=== PATIENT | male | born 1995 | race African-American/Black ===

== ENCOUNTER 2020-01-18 15:58 | Inpatient (IN) ==
--- NOTE | 2020-01-18 19:27 | Diag Imaging Result Doc PS360 ---
EXAM: ABDOMEN FLAT/UPRIGHT - 01/18/2020 HISTORY: n/v abd pain TECHNIQUE: Supine and upright abdomen COMPARISON: 06/10/2011 FINDINGS: There is gas visible in mostly nondistended small bowel and colon. There are multiple air-fluid levels on the upright view. There is possibly some small bowel and colonic wall thickening. There is no free air identified. IMPRESSION: Bowel gas pattern which may relate to enterocolitis. Electronically signed by [employer] 01/18/2020 7:25 PM
[2020-01-18 19:39] LABS: BASO# 0.04 X1000 (0.0-0.2); BASO% 0.6 % (0.0-0.8); EOS# 0.06 X1000 (0.0-0.7); EOS% 0.8 % (0.0-10.0); HEMATOCRIT 47.5 % (42.0-52.0); HEMOGLOBIN 16.9 g/dL (14.0-18.0); IMM GRAN# 0.02 X1000 (0.0-0.04); IMM GRAN% 0.3 % (0.0-0.5); LYMPH# 1.35 X1000 (1.2-3.4); MCH 32.4 PG (27-31); MCHC 35.6 g/dL (33-37); MONO# 0.47 X1000 (0.11-0.59); MONO% 6.6 % (1.7-9.3); MPV 10.8 FL (7.4-10.4); NEUT# 5.15 X1000 (1.4-6.5); NEUT% 72.7 % (42.2-75.2); PLT 226 X1000 (130-400); RBC 5.22 XMIL (4.7-6.1); RDW 11.9 % (11.5-14.5); WBC 7.09 X1000 (4.8-10.8)
[2020-01-18 20:05] LABS: AGAP 13; ALB/GLOB RATIO 1.8; ALKALINE PHOSPHATASE 57 U/L (32-122); AMYLASE 72 U/L (20-200); BUN 6 mg/dL (8-22); CALCIUM 9.7 mg/dL (8.8-10.2); CHLORIDE 94 mmol/L (98-107); COSMO 275; ESTIMATED GFR > 60; GLUCOSE 154 mg/dL (70-104); GOT 73 U/L (10-34); GPT 61 U/L (10-44); LIPASE 19 U/L (13-60); MAGNESIUM 1.7 mg/dL (1.5-2.7); POTASSIUM 4.7 mmol/L (3.5-5.1); SODIUM 137 mmol/L (136-145); TCO2 30 mmol/L (25-35); TOTAL BILIRUBIN 0.96 mg/dL (0.20-1.00); TOTAL PROTEIN 7.8 g/dL (6.3-8.3)
--- NOTE | 2020-01-18 21:00 | PROVIDER DOCUMENTATION ---
This chart was entered by Alexandra Quach Scribe, acting as scribe for Kalani Cabrales CRNP. HPI-Abdominal Pain/GI Problem - General Chief Complaint: Nausea/Vomiting Stated Complaint: CANT EAT,VOMITING Time Seen by Provider: 01/18/20 18:21 Source: patient Allergies/Adverse Reactions: Patient Allergies Allergy/AdvReac Type Severity Reaction Status Date / Time codeine Allergy Unknown Verified 01/10/20 16:14 Penicillins Allergy Unknown Verified 01/10/20 16:14 Home Medications: Home Medication List Medication Instructions Recorded Confirmed Last Taken Type Ondansetron Odt [Zofran 4 mg Odt] 4 mg PO Q6H PRN PRN #20 tab 01/18/20 Unknown Rx - History of Present Illness-ABD Nature of Presenting Problems: Pt is a 24 yobm presenting in the ED with c/o nausea/ vomiting, dizziness, and weakness that started 2 weeks ago. Pt states that he has not been able to keep anything but liquids down for 4 days and the smell of food makes him nauseous. Pt says that his last bowel movement was 2 days ago and was dark diarrhea. Pt reports that he had his appendix out as a teenager and has had no other health issues since. Pt states he smokes 1/2 a pack of cigarettes daily and occasionally will have a beer. Pt is alert and nontoxic in appearance. Quality of Pain: reports: cramping (slight) Severity in ED: reports: mild Onset/Duration: reports: abrupt, other (2 weeks ago) Timing: reports: still present, changing over time, getting worse (Pt reports that the nausea has gotten worse and he cannot keep anything but liquids down for the last 4 days.) Activities at Onset: reports: light activity Modifying Factors: improves with: nothing Associated Symptoms: reports: diarrhea, dizziness, loss of appetite, nausea, weakness. denies: constipation, cough, shortness of breath Last BM: 2 days ago Dark Stools Present?: reports: black (diarrhea) # of Diarrhea Episodes: 1 # of Vomiting Episodes: 2 (daily) Emesis Description: reports: clear Bruising or Bleeding Gums?: No Similar Symptoms Previously?: Yes (pt states that symptoms have been going on for 2 weeks) Recently seen or treated by another doctor?: Yes (01/10/2020 in ED) Review of Systems - Adult - REVIEW OF SYSTEMS - ADULT Constitutional: reports: see HPI, fatique. denies: chills, fever Eyes: reports: no symptoms reported Ears, Nose, Mouth & Throat: reports: no symptoms reported Cardiovascular: denies: chest pain, syncope Respiratory: denies: cough, shortness of breath Gastrointestinal: reports: abdominal pain (cramping), diarrhea, nausea, vomiting Genitourinary: reports: no symptoms reported Musculoskeletal: reports: see HPI, muscle weakness Integumentary: reports: no symptoms reported Neurological: reports: no symptoms reported Psychiatric: reports: no symptoms reported Endocrine: reports: no symptoms reported Hematologic/Lymphatic: reports: no symptoms reported Allergic/Immunologic: reports: no symptoms reported All Other Systems: Reviewed and Negative Past History - Adult - PAST MEDICAL HISTORY-ADULT Review of Records: reports: Old Records Reviewed, Nursing Assessment Review, Medications Reviewed, Social history reviewed & non-contributory. Major Childhood Illnesses: reports: denies history Cardiovascular: reports: denies history Respiratory: reports: bronchitis Gastrointestinal: reports: denies history Genitourinary: reports: denies history Musculoskeletal: reports: denies history Neurological: reports: denies history Endocrine/Immune: reports: denies history Other Conditions: reports: denies history - PRIOR SURGERIES/PROCEDURES Surgical/Procedure History: reports: appendectomy - IMMUNIZATION STATUS Childhood Immunizations: See Nurse Assessment Flu Vaccine: See Nurse Assessment - FAMILY HISTORY Family History: reviewed, not pertinent - SOCIAL HISTORY Smoking: cigarettes, less than 1 pack/day Provider spent 3-5 mins advising pt. on dangers of tobacco.: Discussed manners to quit use, and f/u contacts for add'l counseling. Substance Use: alcohol Alcohol Use Frequency: occasionally Number of drinks per typical drinking period:: 2 drinks Living Situation: family Physical Exam-General - PHYSICAL EXAM-ADULT Initial Vital Signs Reviewed: Yes - CONSTITUTIONAL General Appearance: appears well, alert, no apparent distress, thin - EYES Eyes: PERRL/EOMI, pink conjunctivae - HEAD, EARS, NOSE, MOUTH & THROAT HENMT: normocephalic/atraumatic, moist mucous membranes - NECK Neck: non-tender, full range of motion, supple, normal inspection - RESPIRATORY Respiratory: chest non-tender, lungs clear, normal breath sounds, no respiratory distress - CARDIOVASCULAR Cardiovascular: normal peripheral pulses, regular rate, rhythm - GASTROINTESTINAL (ABDOMEN) Abdominal Exam: normal bowel sounds, non tender, soft - LYMPHATIC Lymphatic: no adenopathy - MUSCULOSKELETAL Back Exam: normal inspection, no CVA tenderness, no vertebral tenderness Extremity: normal range of motion, non-tender, normal gait, normal inspection, no pedal edema, no calf tenderness, normal capillary refill - SKIN Integumentary: normal color, normal turgor, warm/dry - NEUROLOGIC Neurologic: grossly normal - PSYCHIATRIC Psych/Mental Status: normal mood/affect, normal thought content, normal thought process, oriented x 3 Progress - PLAN OF CARE/RESULTS Progress/Plan/Lab Results: Vital Signs - 8 hr 01/18/20 16:30 Temperature 99.3 F Pulse Rate 84 Respiratory Rate 20 Blood Pressure 139/84 O2 Sat by Pulse Oximetry 98 Patient agrees with POC rendered today. Consulted with Dr. Ramirez, will admit the patient and start on IV antibiotics for enterocolitis. Result Diagrams: 01/18/20 19:25 01/18/20 19:25 - XRAY 1 XRAY Study: Abdomen Impression: See EMR Report ([facility] - [address] [facility], [address], [place] [address] [facility] - [address] [place] [address] Department of Imaging Patient: JAYCOB IBARRA OADM Date: 01/18/20MR#: [id number] : 1995ADM Status: REG ERAcct#: [id number] Age/Sex: 24/MRoom/Bed: Loc: ED Ordering Physician: Kalani Cabrales Family Physician: None,PCP Reason for Procedure: n/v abd pain ___ Signed EXAM: ABDOMEN FLAT/UPRIGHT - 01/18/2020 HISTORY: n/v abd pain TECHNIQUE: Supine and upright abdomen COMPARISON: 06/10/2011 FINDINGS: There is gas visible in mostly nondistended small bowel and colon. There are multiple air-fluid levels on the upright view. There is possibly some small bowel and colonic wall thickening. There is no free air identified. IMPRESSION: Bowel gas pattern which may relate to enterocolitis. Electronically signed by [employer] 01/18/2020 7:25 PM 01/18/201924 Interpreting Physician: Gasper Smith MD Dictated Date/Time: 01/18/201922 cc: Kalani Cabrales; None,PCP) - CT/MRI 1 CT Study: Abdomen, Pelvis Impression: See EMR Report (FINDINGS: The visualized lung bases are clear. There are no substantial abnormalities of the liver, spleen, or adrenal glands identified. There are no calcified gallstones or pericholecystic inflammation identified. The common bile duct is noted to be upper normal in caliber at 7 mm. There is no calcified common duct stone identified. There is no pancreatic mass or inflammation identified. The bilateral kidneys enhance homogeneously except for a 0.8 cm left renal cyst. There is no hydronephrosis. There are no substantially enlarged lymph nodes identified. There are no substantially enlarged lymph nodes identified. There is no evidence of bowel obstruction. The appendix is surgically absent. There is a suggestion of pneumatosis at multiple small bowel loops. However, there is no substantial small bowel wall thickening or mesenteric edema identified to suggest substantial enteritis or ischemia. The pneumatosis may therefore be idiopathic/benign. There is no free air, free fluid, or abscess identified. IMPRESSION: Apparent small bowel pneumatosis. No associated small bowel wall thickening or mesenteric edema, which suggests that the pneumatosis may be idiopathic/benign. No bowel obstr uction. No abscess. No free air. Upper normal caliber common bile duct. No calcified gallstones. Unremarkable pancreas. This exam was performed using automated exposure control, adjustment of mA or kV according to patient size, and/or use of iterative reconstruction technique. Electronically signed by [employer] 01/18/2020 9:07 PM) - CONSULTS/PCP/HOSPITALIST Notification #1 *Consult/PCP/Hospitalist*: Dr. Ramirez Time Discussed: 21:32 Consult Disposition: Will see in ED (Reviewed over CT results and MD will see in ED) #2 Consult: Jaya Hart Time Discussed: 21:53 Consult Disposition: Admit Departure - Departure Date of Disposition Decision: 01/18/20 Time of Disposition Decision: 21:54 DIAGNOSIS: Tobacco use disorder, Anorexia, Enterocolitis, Pneumatosis intestinalis of small intestine Disposition: ADMITTED INPATIENT 09 Certified Medical Emergency: Emergent Condition: Fair Prescriptions: Ondansetron Odt [Zofran 4 mg Odt] 4 mg PO Q6H PRN PRN #20 tab PRN Reason: Nausea Prescription Printed Work Excuses: Return to School/Parent Work - Critical Care Note This patient required my direct & personal management of CC.: No Attestation - Physician/ NETTIE Attestation Patient care was provided by Advanced Practice Provider:: Yes Advanced Practice Provider:: Kalani Cabrales Advanced Practice Provider documentation review:: The Mid-level provider documentation, treatment plan and medical decision making was reviewed by the physician who agrees with all treatment and medical decision making by the MLP. The physician spent face to face time with patient:: Yes Advanced Practice Provider documentation review:: Supervising physician onsite and consulted in the evaluation and care of this patient. The physician did have a face to face encounter with the patient. This chart was documented by the indicated scribe, (Alexandra Quach, Lana) and accurately reflects the services I performed and decisions made by me, Kalani Cabrales CRNP, as attested by the provider's signature.
--- NOTE | 2020-01-18 21:09 | Diag Imaging Result Doc PS360 ---
EXAM: CT ABD/PELVIS W/IV CONT ONLY - 01/18/2020 HISTORY: abdominal pain TECHNIQUE: CT abdomen/pelvis with intravenous contrast COMPARISON: 01/18/2020 abdomen radiograph FINDINGS: The visualized lung bases are clear. There are no substantial abnormalities of the liver, spleen, or adrenal glands identified. There are no calcified gallstones or pericholecystic inflammation identified. The common bile duct is noted to be upper normal in caliber at 7 mm. There is no calcified common duct stone identified. There is no pancreatic mass or inflammation identified. The bilateral kidneys enhance homogeneously except for a 0.8 cm left renal cyst. There is no hydronephrosis. There are no substantially enlarged lymph nodes identified. There are no substantially enlarged lymph nodes identified. There is no evidence of bowel obstruction. The appendix is surgically absent. There is a suggestion of pneumatosis at multiple small bowel loops. However, there is no substantial small bowel wall thickening or mesenteric edema identified to suggest substantial enteritis or ischemia. The pneumatosis may therefore be idiopathic/benign. There is no free air, free fluid, or abscess identified. IMPRESSION: Apparent small bowel pneumatosis. No associated small bowel wall thickening or mesenteric edema, which suggests that the pneumatosis may be idiopathic/benign. No bowel obstruction. No abscess. No free air. Upper normal caliber common bile duct. No calcified gallstones. Unremarkable pancreas. This exam was performed using automated exposure control, adjustment of mA or kV according to patient size, and/or use of iterative reconstruction technique. Electronically signed by Gasper Smith 01/18/2020 9:07 PM
[2020-01-18 21:41] LABS: URINE SOURCE CLEAN CATCH
[2020-01-18 21:44] LABS: BILIRUBIN URINE NEGATIVE (NEGATIVE); BLOOD URINE NEGATIVE (NEGATIVE); COLOR YELLOW; GLUCOSE URINE NEGATIVE (NEGATIVE); KETONE URINE NEGATIVE (NEGATIVE); LEUKOCYTES URINE NEGATIVE (NEGATIVE); NITRITE URINE NEGATIVE (NEGATIVE); PROTEIN URINE NEGATIVE (NEGATIVE); SP GRAVITY URINE 1.031; TURBIDITY URINE CLEAR (CLEAR); UROBILINOGEN URINE NORMAL (NORMAL)
[2020-01-18 21:46] LABS: UR EPITHELIAL CELLS <10 /HPF (<10); URINE BACTERIA NEGATIVE /HPF; URINE RBC <10 /HPF (<10); URINE WBC <10 /HPF (<10)
[2020-01-18] MEDS ORDERED: FLAGYL 500 MG/NS 500 MG/100 ML IVPB IV ONE (21:48)
[2020-01-18] MEDS ORDERED: CIPRO 400 MG/D5W 400 MG/200 ML IVPB IV ONE (21:48)
--- NOTE | 2020-01-18 22:51 | GENERAL SURGERY CONSULTATION ---
DATE: 01/18/2020 REASON FOR CONSULTATION: Possible pneumatosis, nausea. CHIEF COMPLAINT: Nausea and vomiting for several weeks. HISTORY OF PRESENT ILLNESS: This is a 24-year-old gentleman, no real significant medical history other than daily smoking up to a pack a day. He has a history of perforated appendicitis, and underwent appendectomy for that several years ago. He says over the last 2-3 weeks he has not really had much of an appetite. He is able to tolerate some solid food, some food he says he gets nauseated just with the smell. He is able tolerate liquids. His bowel movement has been normal for him. He does not go every day. He does tend to go every other day, and that has been unchanged. No blood. His weight has been stable. No fevers. Denies any real sick exposures. He has been in the ER a couple of times for this. He came today. He had a nonspecific abdominal x-ray which prompted CT scan, that showed findings of possible pneumatosis. PAST MEDICAL HISTORY: Negative other than what is mentioned in the HPI. PAST SURGICAL HISTORY: He has had a laparoscopic appendectomy. SOCIAL HISTORY: He smokes up to a pack a day. Occasional alcohol. FAMILY HISTORY: Reviewed. Negative for cancer. REVIEW OF SYSTEMS: Ten-point review of systems was performed and negative other than what is mentioned in HPI. PHYSICAL EXAMINATION: On exam he is afebrile. Pulse is in the 80s, blood pressure 139/84, oxygen saturation 98%. He is 160 pounds, 6 feet 5 inches. Generally he is alert, in no acute distress.HEENT: There is no scleral icterus. No cervical mass. Cardiovascular: Normal rate. Pulmonary: No increased work of breathing. His abdomen is soft, nontender, nondistended. Integument: Warm and dry. Psychiatric: Appropriate affect. Neurologic: No gross deficits. Lymphatic: No cervical, axillary or inguinal adenopathy. LABORATORY DATA: White count 7, hematocrit 47, creatinine 1.0. Mild elevation in his AST and ALT. Bilirubin is normal. Lipase is normal. Urinalysis is clear. DIAGNOSTIC DATA: I reviewed his CT scan. I do not see any free air. I do not see any free fluid. I do not see any evidence of bowel obstruction. I struggle to see areas that are definitive pneumatosis, although I do see some bowel gas pattern that is most likely intraluminal, not intramural. RECOMMENDATIONS: Given his benign abdominal exam, his hemodynamic stability and his normal labs, I have recommended observation and treatment with IV antibiotics for possible infectious-type enteritis symptoms. He ultimately would benefit from EGD and colonoscopy, although I do not see any inflammatory changes on the scan. I talked to the ER about this. We are going to admit him to the hospitalist. We will follow along, but doubtful he will progress to any more emergent intervention. I would keep him on strict bowel rest for the next 24-48 hours, pending resolution of this. I discussed the plan with the patient. He seems to be in no acute distress whatsoever, and is agreeable to the plan. cc: Prem Ramirez MD
--- NOTE | 2020-01-18 23:07 | HISTORY AND PHYSICAL ---
PRIMARY CARE PHYSICIAN: none. CHIEF COMPLAINT: Abdominal pain, nausea, vomiting, diarrhea x4 days. HISTORY OF PRESENTING ILLNESS: A 24-year-old male without any significant past medical history presented to emergency department with 4 days history of having abdominal pain associated with nausea, vomiting and diarrhea. The patient states that he could not keep anything down. He was having difficulty eating and did not feel well. He was evaluated in the emergency department. He had imaging done which did show possible small-bowel pneumatosis. His case was discussed with General surgery, who thought this was more enterocolitis; however, recommended the patient be admitted for observation for further evaluation management. At the time of my examination, patient denied any headache, fever, chills, chest pain, shortness of breath, hemoptysis or any weight changes, but complained of abdominal pain. PAST MEDICAL HISTORY: None. PAST SURGICAL HISTORY: Appendectomy. ALLERGIES: Codeine and penicillin. CURRENT MEDICATIONS: None. SOCIAL HISTORY: Smoking for the past 5 years. Admits to social alcohol use. Denies any history of illicit drug use. FAMILY HISTORY: No history of coronary disease. REVIEW OF SYSTEMS: Fourteen point review of systems listed as in HPI. Other systems negative. PHYSICAL EXAMINATION: GENERAL: Cooperative, friendly male he is resting comfortably now. VITAL SIGNS: Temperature 99.3 degrees, pulse 84, respirations 20, blood pressure 139/84. HEENT: Atraumatic, normocephalic. Extraocular movements intact. PERRLA. NECK: Supple. CHEST: Clear to auscultation. CARDIOVASCULAR: Regular rate and rhythm. ABDOMEN: Soft, diffuse tenderness. EXTREMITIES: No edema. NEUROLOGIC: He is awake, alert, oriented x3. GENITOURINARY: No bladder distention. SKIN: Warm. LABORATORIES AND STUDIES: WBC 7.09, hemoglobin 16.9, hematocrit 45.5, platelets 226,000. Sodium 137, potassium 4.7, chloride 94, CO2 is 30, BUN is 6, creatinine is 1.0. Glucose is 154. CT of the abdomen and pelvis shows apparent small-bowel pneumatosis. No also stated small bowel thickening or mesenteric edema. ASSESSMENT: This is a 24-year-old male without significant past medical history who had presented to emergency department with 4-days history of having abdominal pain with nausea, vomiting, diarrhea. He was evaluated in the emergency department, imaging done which did show possibility of small-bowel pneumatosis was enterocolitis. Subsequently, he will require admission for further management. 1. Abdominal pain with nausea, vomiting, diarrhea. 2. Small-bowel pneumatosis versus enterocolitis. PLAN: 1. We will admit patient to medical floor. 2. We will keep patient NPO. Continue with antiemetics, IV fluids as needed. 3. We will start patient on Cipro and Flagyl. 4. General surgery was already consulted by ER physician. 5. We will continue to follow and reassess, make further recommendation based on patient's clinical course. cc: Daren Thakur MD
[2020-01-18] MEDS ORDERED: ZOFRAN IV PRN (23:48)
[2020-01-19] MEDS: NS 1,000 ML IV SCH ×3 (00:06→17:25)
[2020-01-19] MEDS: FLAGYL 250 MG/NS 250 MG/50 ML IVPB IV SCH ×3 (00:27→17:25)
[2020-01-19] MEDS ORDERED: MELATONIN PO ONE (01:34)
[2020-01-19 06:55] LABS: BASO# 0.03 X1000 (0.0-0.2); BASO% 0.4 % (0.0-0.8); EOS% 1.5 % (0.0-10.0); HEMATOCRIT 43.7 % (42.0-52.0); HEMOGLOBIN 15.5 g/dL (14.0-18.0); LYMPH# 2.11 X1000 (1.2-3.4); LYMPH% 30.7 % (20.5-51.1); MCH 32.2 PG (27-31); MCHC 35.5 g/dL (33-37); MCV 90.7 FL (81-99); MONO# 0.82 X1000 (0.11-0.59); MONO% 11.9 % (1.7-9.3); NEUT# 3.81 X1000 (1.4-6.5); NEUT% 55.5 % (42.2-75.2); PLT 187 X1000 (130-400); RBC 4.82 XMIL (4.7-6.1); RDW 11.7 % (11.5-14.5); WBC 6.87 X1000 (4.8-10.8)
[2020-01-19 07:18] LABS: AGAP 12; BUN 8 mg/dL (8-22); CALCIUM 9.3 mg/dL (8.8-10.2); CHLORIDE 96 mmol/L (98-107); COSMO 271; CREATININE 1.2 mg/dL (0.7-1.2); ESTIMATED GFR > 60; GLUCOSE 112 mg/dL (70-104); POTASSIUM 3.6 mmol/L (3.5-5.1); SODIUM 136 mmol/L (136-145); TCO2 28 mmol/L (25-35)
[2020-01-19] MEDS ORDERED: CIPRO 400 MG/D5W 400 MG/200 ML IVPB IV SCH (11:45)
--- NOTE | 2020-01-19 13:51 | GENERAL SURGERY PROGRESS NOTE ---
DATE: 01/19/2020 SUBJECTIVE: He tolerated clear liquids overnight despite n.p.o. order. Denies any abdominal pain. No fevers. No tachycardia. He is having bowel function. OBJECTIVE: General: On exam, he is alert. Cardiovascular: Normal rate. Abdomen: His abdomen is soft, nontender, nondistended with no peritonitis. LABS: White count remains normal at 6. Creatinine is 1.2. His lactate was 0.5 last night. ASSESSMENT AND PLAN: A 24-year-old gentleman with most likely some degree of enteritis. We can continue adding nausea workup as an outpatient. Otherwise, from a pneumatosis standpoint, I think this was not true pneumatosis or possibly idiopathic, of little clinical significance. It will be reasonable to treat him with an outpatient course of antibiotics for possible enteritis, infectious etiology, and we will continue to follow along. We will give him a clear liquid diet. cc: Prem Ramirez MD
[2020-01-19] MEDS ORDERED: PROTONIX IV SCH (14:15)
[2020-01-19] MEDS ORDERED: SODIUM CHLORIDE 0.9% INJ SCH (14:15)
--- NOTE | 2020-01-19 17:08 | PROGRESS NOTE ---
DATE: 01/19/2020 INTERVAL HISTORY: Mr. Oliveira did not have any acute overnight events. His vitals were unremarkable. His blood work also looked normal. SUBJECTIVE: Mr. Oliveira is feeling much better than yesterday. He denies any more nausea, vomiting, or abdominal pain. He has been passing gas. He has not had any bowel movement. He says he oftentimes eats out and probably caught an infection while eating out. He denies any sick family contacts. PHYSICAL EXAMINATION: vital signs: Temperature 98.7 degrees, pulse 54, respiratory rate 19, blood pressure 123/80, and he is saturating 99% on room air. general: Mr. Oliveira is not in any acute distress. heent: Oral cavity is moist. Lungs: Air entry bilaterally equal. No wheeze, rhonchi, or crackles. Cardiovascular: S1 and S2 normal. No murmur, rub, or gallop. Abdomen: Soft, nontender. Extremities: No lower extremity edema. Neurologic: He is alert and oriented x3. LABORATORIES: Suggestive of hemoglobin 15.5, WBC 6.8. Potassium 3.6, BUN 8, creatinine 1.2. ASSESSMENT AND PLAN: Acute gastroenteritis. Could be food-borne illness versus viral gastroenteritis. Continue intravenous fluids, intravenous antibiotics. Continue clear liquid diet and I will change it to full liquid tomorrow morning. Continue intravenous Zofran as needed. I will add intravenous pantoprazole for his vomiting to reduce gastric acidity. DISPOSITION: I will observe the patient overnight to make sure he tolerates diet. If he does well, I will advance diet to full liquid tomorrow and would anticipate discharge soon in next 24 hours. Mr. Oliveira is in agreement with the plan. cc: Vadim Carmen MD
[2020-01-19 20:29] VITALS: BP 140/87
--- NOTE | 2020-01-20 14:30 | DISCHARGE SUMMARY ---
ADMISSION DATE: 01/18/2020 DISCHARGE DATE: 01/19/2020 DISCHARGE DISPOSITION: Patient left against medical advice so I could not evaluate him. DISCHARGE DIAGNOSIS: Acute gastroenteritis, could be food-borne illness versus viral gastroenteritis. DISCHARGE MEDICATIONS: He left against medical advice. HOSPITAL COURSE SUMMARY: Mr. Oliveira is a 24-year-old man who had presented on 01/18/2020 with chief complaints of abdominal pain, nausea, vomiting, and diarrhea of about 4 days's duration. On arrival in the emergency room, he was found to have a temperature of 99.3 degrees, pulse of 84, respiratory rate of 20, blood pressure of 139/84, and oxygen saturation of 98% on room air. His lab had WBC of 7.09, hemoglobin of 16.9, platelets 226,000. BUN 6, creatinine 1. His urinalysis was unremarkable. His blood cultures were collected, did not have any growth. CAT scan of the abdomen and pelvis performed had apparent small bowel pneumatosis without associated small bowel wall thickening or mesenteric edema so surgical team was consulted and patient was admitted for further management. Surgical team had recommended that there was no pneumatosis on the CAT scan and whatever that was seen was intraluminal bowel gas. He was resuscitated with intravenous fluids and intravenous antibiotics. Within 24 hours, he was feeling better and he was started on a diet which he was tolerating well. The plan was to keep him for 24 hours, advance his diet, and discharge him the next day. However, it looks like the patient left against medical advice. cc: Vadim Carmen MD
== END 2020-01-19 21:00 | disposition left against medical advice (07) | DRG 392 ==
LOC: ED 15:58 → SUATTDRO 22:53 → 3N 22:53
PROVIDERS: ATTEND Internal Medicine